=== PATIENT | female | born 1965 | race Caucasian/White ===

== ENCOUNTER → 2024-05-15 10:26 | Outpatient (REF) | payer BC, SELFPAY | LOC: WDC 10:26 | PROVIDERS: ATTENDING PHYSICIAN Obstetrics & Gynecology; FAMILY PHYSICIAN Family Medicine | DX: Z12.31 Encounter for screening mammogram for malignant neoplasm of breast (principal) | CPT/HCPCS: 77063; 77067 ==

== ENCOUNTER → 2025-04-02 14:38 | Outpatient (REF) | payer OTHER, SELFPAY | LOC: RCS 14:38 | PROVIDERS: ATTENDING PHYSICIAN Psychiatry & Neurology Psychiatry; FAMILY PHYSICIAN Family Medicine | DX: F31.62 Bipolar disorder, current episode mixed, moderate (principal); Z63.4 Disappearance and death of family member; R41.840 Attention and concentration deficit; Z79.899 Other long term (current) drug therapy | CPT/HCPCS: 93005 ==